=== PATIENT | male | born 1960 | race Caucasian/White ===

== ENCOUNTER 2020-03-03 07:13 | Outpatient (REF) | payer BC, SELFPAY ==
[2020-03-03 07:43] LABS: Hematocrit 49.5 % (42-52); Hemoglobin 16.5 g/dl (14.0-18.0); Mean Corpuscular HGB Conc 33.3 g/dl (31.0-36.0); Mean Corpuscular Hemoglobin 29.3 pg (27.0-33.0); Mean Corpuscular Volume 87.9 fL (80-98); Mean Platelet Volume 10.6 fL (9.4-12.4); Platelet Count 235 X10*3/uL (160-400); Red Blood Count 5.63 X10*6/uL (4.60-5.80); Red Cell Distribution Width 12.8 % (11.0-16.0); White Blood Count 6.4 X10*3/uL (4.8-10.8)
[2020-03-03 08:03] LABS: Alanine Aminotransferase 28 U/L (0-40); Albumin Level 4.3 g/dL (3.5-5.0); Alkaline Phosphatase 46 U/L (39-117); Anion Gap 13 (12-20); Aspartate Amino Transferase 26 U/L (5-37); Bilirubin Direct 0.4 mg/dL (0.0-0.5); Bilirubin Total 1.1 mg/dL (0.0-1.0); Blood Urea Nitrogen 16 mg/dL (9-16); Calcium 8.6 mg/dL (8.4-10.2); Carbon Dioxide 28 mmol/L (22-29); Chloride 102 mmol/L (96-108); Cholesterol 203 mg/dL; Estimated Glomerular Filt Rate > 60; Glucose Random 99 mg/dL (60-115); HDL Cholesterol 33 mg/dL; LDL Cholesterol Calculated 152 mg/dl; Potassium 3.9 mmol/l (3.3-5.1); Sodium 139 mmol/L (135-145); Total Protein 6.8 g/dL (6.5-8.0); Triglycerides 91 mg/dL
== END 2020-03-03 07:14 | disposition home or self-care (01) ==
LOC: HO.LAB 07:13
PROVIDERS: PCP Internal Medicine; Visit Provider Internal Medicine
DX: I10 Essential (primary) hypertension (principal)
CPT/HCPCS: 36415; 80048; 80061; 80076; 85027

== ENCOUNTER 2021-08-19 09:32 | Outpatient (REF) | payer BC, SELFPAY ==
[2021-08-19 11:02] LABS: Alanine Aminotransferase 20 U/L (0-40); Albumin Level 4.2 g/dL (3.5-5.0); Alkaline Phosphatase 43 U/L (39-117); Anion Gap 11 (12-20); Aspartate Amino Transferase 18 U/L (5-37); Bilirubin Direct 0.4 mg/dL (0.0-0.5); Bilirubin Total 1.1 mg/dL (0.0-1.0); Blood Urea Nitrogen 12 mg/dL (9-16); Calcium 8.9 mg/dL (8.4-10.2); Carbon Dioxide 30 mmol/L (22-29); Chloride 104 mmol/L (96-108); Cholesterol 198 mg/dL; Estimated Glomerular Filt Rate > 60; Glucose Random 102 mg/dL (60-115); HDL Cholesterol 42 mg/dL; LDL Cholesterol Calculated 144 mg/dl; Sodium 141 mmol/L (135-145); Total Protein 6.6 g/dL (6.5-8.0); Triglycerides 63 mg/dL
[2021-08-19 11:22] LABS: Thyroid Stimulating Hormone 0.58 uIU/mL (0.32-4.0)
[2021-08-19 11:24] LABS: Appearance Urine CLEAR; Color Urine YELLOW; Glucose Urine UA NEG (NEG); Leukocyte Esterase Urine NEG (NEG); Nitrite Urine NEG (NEG); Specific Gravity - Urine 1.015 (1.005-1.025); Urine Blood NEG (NEG); Urine Ketones NEG (NEG); Urine Protein NEG (NEG-TRACE)
== END 2021-08-19 09:33 | disposition home or self-care (01) ==
LOC: HO.LAB 09:32
PROVIDERS: PCP Internal Medicine; Visit Provider Internal Medicine
DX: I10 Essential (primary) hypertension (principal)
CPT/HCPCS: 36415; 80048; 80061; 80076; 81003; 84443

== ENCOUNTER 2021-10-12 08:29 | Outpatient (REF) | payer BC, SELFPAY ==
[2021-10-12 08:55] LABS: Binax Internal Control QC Valid; Binax Now Covid-19 Ag Negative (Negative); Binax Performed by: HO.BONILM
== END 2021-10-12 08:30 | disposition home or self-care (01) ==
LOC: HO.HMGCLDS 08:29
PROVIDERS: PCP Internal Medicine; Visit Provider Internal Medicine
DX: Z20.822 Contact with and (suspected) exposure to COVID-19 (principal); J06.9 Acute upper respiratory infection, unspecified
CPT/HCPCS: 87811; C9803

== ENCOUNTER 2021-10-14 11:24 | Outpatient (REF) | payer BC, SELFPAY ==
[2021-10-14 12:08] LABS: Influenza A PCR NEGATIVE (Negative); Influenza B PCR NEGATIVE (Negative); Resp Syncy Virus RNA Qual PCR NEGATIVE (Negative); SARS COV2 PCR INHOUSE NEGATIVE (Negative)
== END 2021-10-14 11:25 | disposition home or self-care (01) ==
LOC: HO.LNP 11:24
PROVIDERS: Visit Provider Internal Medicine
DX: Z20.822 Contact with and (suspected) exposure to COVID-19 (principal); R09.89 Other specified symptoms and signs involving the circulatory and respiratory systems
CPT/HCPCS: 0241U

== ENCOUNTER 2021-11-04 14:29 | Outpatient (REF) | payer BC, SELFPAY ==
--- NOTE | ~2021-11-04 | XR_ITS ---
EXAMINATION: XR CHEST CLINICAL INFORMATION: Cough COMPARISON: Chest x-ray August 28, 2008 TECHNIQUE: 2 views of the chest were obtained. FINDINGS: Cardiac silhouette is normal in size. The lungs are well aerated. There is no lobar consolidation. No pleural effusion or pneumothorax. Moderate degenerative changes of the spine. XR/XR chest 2V IMPRESSION: No acute pulmonary pathology.
== END 2021-11-04 14:30 | disposition home or self-care (01) ==
LOC: HO.HMGCX 14:29
PROVIDERS: PCP Internal Medicine
DX: R05.9 Cough, unspecified (principal)
CPT/HCPCS: 71046

== ENCOUNTER 2022-06-09 14:44 | Outpatient (REF) | payer BC, SELFPAY ==
[2022-06-09 15:39] LABS: Hematocrit 45.9 % (42.0-52.0); Hemoglobin 15.5 g/dl (14.0-18.0); Mean Corpuscular HGB Conc 33.8 g/dl (31.0-36.0); Mean Corpuscular Hemoglobin 28.9 pg (27.0-33.0); Mean Corpuscular Volume 85.6 fL (80.0-98.0); Mean Platelet Volume 10.3 fL (9.4-12.4); Platelet Count 218 X10*3/uL (160-400); Red Blood Count 5.36 X10*6/uL (4.60-5.80); Red Cell Distribution Width 12.8 % (11.0-16.0); White Blood Count 6.7 X10*3/uL (4.8-10.8)
[2022-06-09 15:49] LABS: Appearance Urine Clear; Color Urine Yellow; Glucose Urine UA Negative (Negative); Leukocyte Esterase Urine Negative (Negative); Nitrite Urine Negative (Negative); PH 5.5 (5.0-9.0); Specific Gravity - Urine 1.015 (1.005-1.025); Urine Blood Negative (Negative); Urine Ketones Negative (Negative); Urine Protein Negative (Neg-Trace)
[2022-06-09 16:41] LABS: Alanine Aminotransferase 24 U/L (0-40); Alkaline Phosphatase 47 U/L (39-117); Anion Gap 13 (12-20); Aspartate Amino Transferase 16 U/L (5-37); Bilirubin Direct 0.2 mg/dL (0.0-0.5); Bilirubin Total 0.7 mg/dL (0.0-1.0); Blood Urea Nitrogen 11 mg/dL (9-16); Carbon Dioxide 29 mmol/L (22-29); Chloride 105 mmol/L (96-108); Cholesterol 185 mg/dL; Estimated Glomerular Filt Rate > 60; Glucose Random 126 mg/dL (60-115); HDL Cholesterol 40 mg/dL; LDL Cholesterol Calculated 124 mg/dl; Potassium 3.8 mmol/L (3.3-5.1); Sodium 143 mmol/L (135-145); Total Protein 6.2 g/dL (6.5-8.0); Triglycerides 107 mg/dL
[2022-06-09 16:57] LABS: Thyroid Stimulating Hormone 0.83 uIU/mL (0.32-4.0)
[2022-06-10 09:44] LABS: Estimated Average Glucose 117 mg/dL; Hemoglobin A1c % 5.7 %
== END 2022-06-09 14:45 | disposition home or self-care (01) ==
LOC: HO.LAB 14:44
PROVIDERS: PCP Internal Medicine; Visit Provider Internal Medicine
DX: I10 Essential (primary) hypertension (principal); R73.9 Hyperglycemia, unspecified
CPT/HCPCS: 36415; 80048; 80061; 80076; 81003; 83036; 84443; 85027

== ENCOUNTER 2023-05-29 14:09 | Outpatient (AMB) | payer BC, SELFPAY ==
--- NOTE | 2023-05-29 14:10 | MHC.PC.OV ---
Vital Signs 05/29/23 14:12 Height 5 ft 9 in Weight 282 lb BMI 41.6 BP 132/70 Blood Pressure Location Lt brachial Position Sitting Pulse 87 Pulse Source Pulse Oximeter Pulse Oximetry (%) 97 Oxygen Delivery Method Room Air Intake Visit Reasons: 4 month f/u Labs Intake Note: Patient is here to follow up on HTN,. Jinrikisha Driver Required: No Case Manager: Not Required per policy Accompanied by: Self / Same As Patient Allergies No Known Allergies Allergy (Mild, Verified 05/29/23 14:12) NONE Tobacco use date assessed: 05/29/23 Fall risk assessment: No Falls in past year Last assessed Fall Risk: 05/29/23 Dental Screening Dental Screen Date: 05/29/23 Did you have a dental visit in the last 12 months?: Yes Did you have a dental problem in the last 6 months where you did not have access to dental care?: No Was dental information given to patient?: Patient has dentist HPI 4 month f/u Labs HPI Details 63-year-old male presents to the office to discuss his chronic medical conditions. Patient continues to have extensive pain all over his body and neck. He has been diagnosed with osteoarthritis. Unfortunately no procedure could be done at the pain clinic. His symptoms have to be controlled with Celebrex. He is requesting a refill on the same. Compliant with his blood pressure medications. Does not check blood pressures at home. No nausea or vomiting. Continues to work at [employer]. Not following any particular diet or exercise plan. [facility] Medical History (Updated 06/09/22 @ 14:48 by Claude Orozco MD) Morbid obesity with BMI of 40.0-44.9, adult Cervicalgia of egxkibmm-mhhvpai-cedct region Tinnitus Benign essential HTN Surgical History (Updated 05/29/23 @ 14:16 by TRELL Chilel) History of hand surgery History of left knee replacement Family History Family/Other Medical history unknown Social History Housing: House Alcohol intake: never Patient Tobacco Use Status: Never used Tobacco e-Cigarette/Vaping Use: Never Used Second Hand Smoke Exposure: No service: No Current occupational status: employed Current occupational exposures/hazards: No Cognitive needs: No Hearing needs: No Vision needs: Yes (reading glasses) Questionnaire PHQ-9 Over the last 2 weeks, how often have you been bothered by any of the following problems? 1. Little interest or pleasure in doing things: not at all 2. Feeling down, depressed, or hopeless: not at all 3. Trouble falling or staying asleep, or sleeping too much: not at all 4. Feeling tired or having little energy: not at all 5. Poor appetite or overeating: not at all 6. Feeling bad about yourself - or that you are a failure or have let yourself or your family down: not at all 7. Trouble concentrating on things, such as reading the newspaper or watching television: not at all 8. Moving or speaking so slowly that other people could have noticed. Or the opposite - being so fidgety or restless that you have been moving around a lot more than usual: not at all 9. Thoughts that you would be better off or of hurting yourself in some way: not at all Total score: 0 Depression Screening Interpretation: Negative Depression Screening Done: Yes Source: Developed by Drs. Eric Prince, Nanette Greenberg, Cisco Burden and colleagues, with an educational marline from [employer]. Thrive Questionnaire Date Thrive assessed: 05/29/23 I am a: Patient What is your living situation today?: I have a steady place to live Within the past 12 months, did the food you bought not last and you didn't have the money to get more?: Never true Within the past 12 months, did you worry whether your food would run out before you got money to buy more?: Never true Do you have trouble paying for medicines?: No Do you have trouble getting transportation to medical appointments?: No Do you have trouble paying your heating and electricity bill?: No Do you have trouble taking care of your child, family member or friend?: No Do you have trouble with day-to-day activities such as bathing, preparing meals, shopping, managing finances, etc.?: No Are you currently unemployed and looking for a job?: No Are you interested in more education?: No Currently or been in a relationship where the following occur: no concerns reported THRIVE Score: 0 AUDIT C Alcohol Use Questionnaire (AUDIT-C) 1. How often do you have a drink containing alcohol?: Never Total Score: 0 MAXWELL-7 AMB Questionnaire MAXWELL-7 Date MAXWELL - 7 assessed: 05/29/23 Feeling nervous, anxious, or on edge: 0 = Not at all Not being able to stop or control worryin = Not at all Worrying too much about different things: 0 = Not at all Trouble relaxin = Not at all Being so restless that it is hard to sit still: 0 = Not at all Becoming easily annoyed or irritable: 0 = Not at all Feeling afraid as if something awful might happen: 0 = Not at all Total MAXWELL-7 score (0-4 normal; 5-9 mild; 10-14 moderate; 15-21 severe): 0 Source: Developed by Drs. Eric Prince, Nanette Greenberg, Cisco Burden and colleagues, with an educational marline from [employer]. Physical exam (Primary Care) Vital Signs: Last Vital Signs Pulse 87 05/29/23 14:12 BP 132/70 05/29/23 14:12 Pulse Ox 97 05/29/23 14:12 Oxygen Delivery Method Room Air 05/29/23 14:12 BMI result Body Mass Index 41.6 Tobacco/Smoking Status: Tobacco use Status Tobacco use date assessed 05/29/23 05/29/23 14:17 Patient Tobacco Use Status Never used Tobacco 05/29/23 14:11 e-Cigarette/Vaping Use Never Used 05/29/23 14:11 PHQ-9: PHQ-9 Score PHQ-9: Total score 0 05/29/23 14:11 Depression Screening Interpretation: Negative Thrive Assessment: Date of Thrive Assessment Date Thrive assessed 05/29/23 05/29/23 14:11 Currently or been in a relationship where the following occur: no concerns reported Const General: cooperative and healthy appearing Nutritional Appearance: well nourished Orientation/consciousness: patient oriented x3 Limitations: no limitations HENMT Head: Yes normal to inspection Eyes General: appearance normal, both eyes and all related structures Neck Neck: Yes normal visual inspection Chest Chest palpation & inspection: normal palpation of entire chest wall Resp Effort & Inspection: normal respiratory effort Neuro General: patient oriented x3 Assessment and Plan Assessment & Plan (1) Morbid obesity with BMI of 40.0-44.9, adult: Code(s): E66.01 - Morbid (severe) obesity due to excess calories; Z68.41 - Body mass index [BMI] 40.0-44.9, adult (2) Benign essential HTN: Code(s): I10 - Essential (primary) hypertension Plan: Blood pressure is in range. Continue current medications. Orders: Orders Lipid Panel Today E66.01 - Morbid (severe) obesity due to excess calories, I10 - Essential (primary) hypertension, Z68.41 - Body mass index [BMI] 40.0-44.9, adult Liver Panel Today E66.01 - Morbid (severe) obesity due to excess calories, I10 - Essential (primary) hypertension, Z68.41 - Body mass index [BMI] 40.0-44.9, adult UA and rflx microscopic Today E66.01 - Morbid (severe) obesity due to excess calories, I10 - Essential (primary) hypertension, Z68.41 - Body mass index [BMI] 40.0-44.9, adult Basic Metabolic Panel Today E66.01 - Morbid (severe) obesity due to excess calories, I10 - Essential (primary) hypertension, Z68.41 - Body mass index [BMI] 40.0-44.9, adult Complete Blood Count no Diff Today E66.01 - Morbid (severe) obesity due to excess calories, I10 - Essential (primary) hypertension, Z68.41 - Body mass index [BMI] 40.0-44.9, adult Thyroid Stimulating Hormone Today E66.01 - Morbid (severe) obesity due to excess calories, I10 - Essential (primary) hypertension, Z68.41 - Body mass index [BMI] 40.0-44.9, adult Medications: New celecoxib 200 mg PO DAILY 90 caps 1RF Coding Level of Care Code Est Pt Level 4 (03142) Diagnoses Morbid obesity with BMI of 40.0-44.9, adult E66.01; Z68.41 Benign essential HTN I10
[2023-05-29 14:12] VITALS: BP 132/70; PULSE 87; O2SAT 97; BMI 41.6
== END 2023-05-29 14:44 | disposition home or self-care (01) ==
PROVIDERS: PCP Internal Medicine; Visit Provider Internal Medicine
DX: E66.01 Morbid (severe) obesity due to excess calories (principal); Z68.41 Body mass index [BMI] 40.0-44.9, adult; I10 Essential (primary) hypertension
CPT/HCPCS: 99214

== ENCOUNTER 2023-06-09 11:20 | Outpatient (REF) | payer BC, SELFPAY ==
[2023-06-09 12:21] LABS: Appearance Urine Clear; Color Urine Yellow; Glucose Urine UA Negative (Negative); Leukocyte Esterase Urine Negative (Negative); Nitrite Urine Negative (Negative); Specific Gravity - Urine 1.015 (1.005-1.025); Urine Blood Negative (Negative); Urine Ketones Negative (Negative); Urine Protein Negative (Neg-Trace)
[2023-06-09 12:28] LABS: Hematocrit 48.4 % (42.0-52.0); Hemoglobin 16.8 g/dl (14.0-18.0); Mean Corpuscular HGB Conc 34.7 g/dl (31.0-36.0); Mean Corpuscular Hemoglobin 30.2 pg (27.0-33.0); Mean Corpuscular Volume 86.9 fL (80.0-98.0); Mean Platelet Volume 10.6 fL (9.4-12.4); Platelet Count 229 X10*3/uL (160-400); Red Blood Count 5.57 X10*6/uL (4.60-5.80); Red Cell Distribution Width 12.7 % (11.0-16.0); White Blood Count 6.4 X10*3/uL (4.8-10.8)
[2023-06-09 13:15] LABS: Alanine Aminotransferase 20 U/L (0-40); Albumin Level 4.2 g/dL (3.5-5.0); Alkaline Phosphatase 41 U/L (39-117); Anion Gap 10 (12-20); Aspartate Amino Transferase 17 U/L (5-37); Bilirubin Direct 0.3 mg/dL (0.0-0.5); Bilirubin Total 0.9 mg/dL (0.0-1.0); Blood Urea Nitrogen 14 mg/dL (9-16); Calcium 9.1 mg/dL (8.4-10.2); Carbon Dioxide 30 mmol/L (22-29); Chloride 104 mmol/L (96-108); Cholesterol 182 mg/dL (<200); Estimated Glomerular Filt Rate > 60; Glucose Random 99 mg/dL (60-115); HDL Cholesterol 37 mg/dL (>40); LDL Cholesterol Calculated 128 mg/dL (<100); Potassium 3.5 mmol/L (3.3-5.1); Sodium 140 mmol/L (135-145); Total Protein 7.3 g/dL (6.5-8.0); Triglycerides 88 mg/dL (<150)
[2023-06-09 13:33] LABS: Thyroid Stimulating Hormone 0.59 uIU/mL (0.32-4.0)
== END 2023-06-09 11:21 | disposition home or self-care (01) ==
LOC: HO.LAB 11:20
PROVIDERS: PCP Internal Medicine; Visit Provider Internal Medicine
DX: E66.01 Morbid (severe) obesity due to excess calories (principal); Z68.41 Body mass index [BMI] 40.0-44.9, adult; I10 Essential (primary) hypertension
CPT/HCPCS: 36415; 80048; 80061; 80076; 81003; 84443; 85027

== ENCOUNTER 2024-03-27 14:26 | Outpatient (AMB) | payer BC, SELFPAY ==
[2024-03-27 14:34] VITALS: BP 136/84; PULSE 76; TEMP 36.2; O2SAT 95; BMI 40.8
--- NOTE | 2024-03-27 14:34 | A.OFFPC_ITS ---
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 Required: No Accompanied by: Self / Same As Patient Allergies No Known Allergies Allergy (Mild, Verified 03/27/24 14:45) NONE Medication List - Last Reconciled 03/27/24 by QUINN Mahan amlodipine 5 mg PO DAILY celecoxib 200 mg PO DAILY diazepam 5 mg PO DAILY hydrochlorothiazide 25 mg PO QAM lisinopril 20 mg PO DAILY simvastatin 10 mg PO BEDTIME Tobacco use date assessed: 03/27/24 Fall risk assessment: No Falls in past year Last assessed Fall Risk: 03/27/24 Dental Screening Dental Screen Date: 03/27/24 Did you have a dental visit in the last 12 months?: Yes Did you have a dental problem in the last 6 months where you did not have access to dental care?: No Was dental information given to patient?: Patient has dentist HPI Pre op HPI Details The patient is a 63-year-old male who presents today for preop clearance. Patient of Dr. Orozco Surgery: Left reverse total shoulder arthroplasty. Surgery date: 05/02/24 Surgeon/Location: Dr. Shayy Florez at [facility] [place] Anesthesisa: General. Patient reports history of general anesthesia in the past that he tolerated well. The patient denies history of perioperative hypothermia blood clotting disorders. He is not on any anticoagulation. Medical history significant for morbid obesity, benign essential hypertension, cervicalgia of occipito-axial region, tinnitus The patient denies SOB, chest pain, heart palpitation, dizziness, or heart palpitation [facility] Medical History (Updated 03/27/24 @ 15:25 by QUINN Mahan) Morbid obesity with BMI of 40.0-44.9, adult Cervicalgia of vowhrksl-czdvxtb-ajywm region Tinnitus Benign essential HTN Surgical History History of hand surgery History of left knee replacement Family History Family/Other Medical history unknown Social History Housing: House Alcohol intake: never Patient Tobacco Use Status: Never used Tobacco e-Cigarette/Vaping Use: Never Used Second Hand Smoke Exposure: No service: No Current occupational status: employed Current occupational exposures/hazards: No Cognitive needs: No Hearing needs: No Vision needs: Yes (reading glasses) Questionnaire PHQ-9 Over the last 2 weeks, how often have you been bothered by any of the following problems? 1. Little interest or pleasure in doing things: not at all 2. Feeling down, depressed, or hopeless: not at all 3. Trouble falling or staying asleep, or sleeping too much: not at all 4. Feeling tired or having little energy: not at all 5. Poor appetite or overeating: not at all 6. Feeling bad about yourself - or that you are a failure or have let yourself or your family down: not at all 7. Trouble concentrating on things, such as reading the newspaper or watching television: not at all 8. Moving or speaking so slowly that other people could have noticed. Or the opposite - being so fidgety or restless that you have been moving around a lot more than usual: not at all 9. Thoughts that you would be better off or of hurting yourself in some way: not at all Total score: 0 Depression Screening Interpretation: Negative Depression Screening Done: Yes 18322 - PHQ-9 Billing: Yes Source: Developed by Drs. Eric Prince, Nanette Greenberg, Cisco Burden and colleagues, with an educational marline from [employer]. Thrive Questionnaire Date Thrive assessed: 03/27/24 I am a: Patient What is your living situation today?: I have a steady place to live Within the past 12 months, did the food you bought not last and you didn't have the money to get more?: Never true Within the past 12 months, did you worry whether your food would run out before you got money to buy more?: Never true Do you have trouble paying for medicines?: No Do you have trouble getting transportation to medical appointments?: No Do you have trouble paying your heating and electricity bill?: No Do you have trouble taking care of your child, family member or friend?: No Do you have trouble with day-to-day activities such as bathing, preparing meals, shopping, managing finances, etc.?: No Are you currently unemployed and looking for a job?: No Are you interested in more education?: No Please select the resources that you would like help with: None Currently or been in a relationship where the following occur: No concerns reported THRIVE Score: 0 AUDIT C Alcohol Use Questionnaire (AUDIT-C) 1. How often do you have a drink containing alcohol?: Never Total Score: 0 Score Reviewed/Action Taken: Yes MAXWELL-7 AMB Questionnaire MAXWELL-7 Date MAXWELL - 7 assessed: 03/27/24 Feeling nervous, anxious, or on edge: 0 = Not at all Not being able to stop or control worryin = Not at all Worrying too much about different things: 0 = Not at all Trouble relaxin = Not at all Being so restless that it is hard to sit still: 0 = Not at all Becoming easily annoyed or irritable: 0 = Not at all Feeling afraid as if something awful might happen: 0 = Not at all Total MAXWELL-7 score (0-4 normal; 5-9 mild; 10-14 moderate; 15-21 severe): 0 Source: Developed by Drs. Eric Prince, Nanette Greenberg, Cisco Burden and colleagues, with an educational marline from [employer]. MAXWELL-7 Assessment Billing MAXWELL-7 Assessment Tool: MAXWELL-7 Assessment 63837 Review of Systems Const Details: Denies chills, Denies fatigue, Denies fever(s), Denies headache(s) and Denies weakness HEENT Denies change in vision, Denies dizziness, Denies headache(s), Denies hearing loss, Denies nasal congestion, Denies sinus pain, Denies sinus pressure and Denies sore throat Card Denies chest pain, Denies lightheadedness, Denies dyspnea and Denies other (palpitations) Resp Denies cough, Denies dyspnea and Denies wheezing GI Denies abdominal pain, Denies melena, Denies hematochezia, Denies change in brant wel habits, Denies dyspepsia and Denies nausea Denies hematuria and Denies dysuria Musc Denies abnormal gait, Denies myalgias, reports left shoulder pain, Denies numbness and Denies tingling Skin/Breast Denies rash, Denies unusual bruising and Denies wounds Neuro Denies abnormal gait, Denies dizziness, Denies headache(s), Denies memory loss, Denies numbness, Denies Sensory deficit (Neuro), Denies tingling and Denies weakness Psych Denies anxiety, Denies depression and Denies memory loss Endo Denies cold intolerance, Denies fatigue, Denies heat intolerance, Denies polydipsia and Denies polyuria Jose G/Lymph Denies easy bleeding and Denies easy bruising Aller/Immun Denies wheezing Physical exam (Primary Care) Vital Signs: Last Vital Signs Temp 97.1 F 03/27/24 14:34 Pulse 76 03/27/24 14:34 BP 136/84 03/27/24 14:34 Pulse Ox 95 03/27/24 14:34 Oxygen Delivery Method Room Air 03/27/24 14:34 BMI result Body Mass Index 40.8 Tobacco/Smoking Status: Tobacco use Status Tobacco use date assessed 03/27/24 03/27/24 14:39 Patient Tobacco Use Status Never used Tobacco 03/27/24 14:39 e-Cigarette/Vaping Use Never Used 03/27/24 14:39 PHQ-9: PHQ-9 Score PHQ-9: Total score 0 03/27/24 18:26 Depression Screening Interpretation: Negative Thrive Assessment: Date of Thrive Assessment Date Thrive assessed 03/27/24 03/27/24 14:39 Currently or been in a relationship where the following occur: No concerns reported Const Other: General: no acute distress, well developed, alert and awake Nutritional Appearance: well nourished Orientation/consciousness: patient oriented x3 HENMT Head: Yes normocephalic and Yes atraumatic Ears: hearing grossly normal bilaterally and TM's normal bilaterally General nose exam: Normal external nose present and Normal nares present Mouth: Normal oral and palatal mucosa present and moist mucous membranes Teeth and gingiva: dentition normal Throat: Yes oropharynx normal Eyes Pupils: Equal, round and reactive pupils present and Pupil accommodation reflex normal EOM: EOMs intact bilaterally Neck Neck: Yes normal visual inspection, Yes no lymphadenopathy and Yes trachea midline Thyroid: Thyroid normal Carotids: no bruits Lymphatic: no lymphadenopathy noted Chest Chest palpation & inspection: normal inspection of the chest Resp Effort & Inspection: normal respiratory effort Auscultation: clear to auscultation bilaterally Cardio Rate: regular rate Rhythm: regular rhythm Heart sounds: S1 normal heart sound present, S2 normal heart sound present, no gallops, no murmurs and no rubs Bruits: no abdominal aortic bruits and no carotid bruits GI Palpation (GI): No Abdominal aortic bruit present, Soft to palpation, nontender, No hepatosplenomegaly present and No Rebound tenderness present Auscultation: normal bowel sounds General: Yes no CVA tenderness Back/Spine/Pelvis Back: no CVA tenderness left shoulder pain wtih ROM Skin General: warm and dry. Normal skin color. Normal skin turgor Lesions: no lesions Nails: normal Neuro General: patient oriented x3 Cranial nerves: Yes Equal, round and reactive pupils present Cognition (Neuro): normal cognition Gait exam (Neuro): Normal gait present Motor exam (neuro): 5/5 motor strength present throughout Extrem General: Yes normal to inspection, No edema and No calf tenderness Psych Appearance: grossly normal Affect: normal affect Attitude: cooperative Thought process: Normal thought process present Coding Level of Care Code Est Pt Level 3 (04828) Diagnoses Preoperative clearance Z01.818 Benign essential HTN I10 Additional Codes MAXWELL-7 Assessment Billing - MAXWELL-7 Assessment Tool: MAXWELL-7 Assessment 69964 ([id number]) PHQ-9 - 58391 - PHQ-9 Billing: Yes ([id number]) Time Spent (min) 25 Assessment & Plan Assessment & Plan (1) Preoperative clearance: Code(s): Z01.818 - Encounter for other preprocedural examination Category: Medical Plan: Regarding preop clearance the patient is at acceptable risk for proposed surgery. Reviewed with the patient that no surgery is completely free of risk and that this examination is to assist the surgeon in reviewing informed consent. Labs and EKG was ordered to assist in completing his evaluation. The patient hypertension is controlled on amlodipine 5 mg daily and lisinopril 20 mg daily-you can take these medications with sips of water at the morning of surgery. Stop taking celecoxib 200mg daily 7 days before surgery-you can resume this medication 7 days after surgery. (2) Benign essential HTN: Code(s): I10 - Essential (primary) hypertension Category: Medical Plan: Reinforced low sodium diet Patient's BP is adequately controlled on his current medications, including Amlodipine 5 mg QD, Lisinopril 20 mg QD and HCTZ 25 mg QD Plan Follow up with PCP in 4 months Orders: Orders Complete Blood Count Auto Diff 03/27/24 Z01.812 - Encounter for preprocedural laboratory examination Comprehensive [place]. Panel Fast 03/27/24 Z01.812 - Encounter for preprocedural laboratory examination ECG 12 lead EKG 03/27/24 Z01.818 - Encounter for other preprocedural examination Hemoglobin A1c 03/27/24 Z01.812 - Encounter for preprocedural laboratory examination
== END 2024-03-27 15:00 | disposition home or self-care (01) ==
PROVIDERS: PCP Internal Medicine
DX: I10 Essential (primary) hypertension (principal); Z01.818 Encounter for other preprocedural examination

== ENCOUNTER → 2024-03-27 14:26 | Outpatient (BNVA) | payer BC, SELFPAY | PROVIDERS: PCP Internal Medicine | DX: Z01.818 Encounter for other preprocedural examination (principal); I10 Essential (primary) hypertension; Z79.899 Other long term (current) drug therapy | CPT/HCPCS: 96127 ==

== ENCOUNTER → 2024-03-29 09:40 | Outpatient (REF) | payer BC, SELFPAY ==
--- NOTE | 2024-03-29 09:45 | ECG_ITS ---
Test Reason : PREOP Blood Pressure : */* mmHG Vent. Rate : 76 BPM Atrial Rate : 76 BPM P-R Int : 176 ms QRS Dur : 102 ms QT Int : 400 ms P-R-T Axes : 46 26 35 degrees QTcB Int : 450 ms Normal sinus rhythm Nonspecific ST abnormality Abnormal ECG When compared with ECG of 05-Feb-2007 13:10, No significant change was found Referred By: Rolando David Electronically Signed By: JENNY DOMINGUEZ MD
[2024-03-29 10:08] LABS: MANUAL DIFF FLAG NO
[2024-03-29 10:42] LABS: Basophils Absolute Auto 0.1 X10*3/uL (0.0-0.2); Basophils Percent Auto 1.3 % (0-2); Eosinophils Absolute Auto 0.1 X10*3/uL (0.0-0.4); Estimated Average Glucose 114 mg/dL; Hematocrit 44.9 % (42.0-52.0); Hemoglobin 15.6 g/dl (14.0-18.0); Hemoglobin A1c % 5.6 % (<6.0); Imm Gran Abs Auto 0.02 X10*3/uL (0.00-0.03); Imm Gran Pct Auto 0.3 % (0.0-0.4); Lymphocytes Absolute Auto 1.3 X10*3/uL (1.2-4.9); Lymphocytes Percent Auto 20.5 % (20-40); Mean Corpuscular HGB Conc 34.7 g/dl (31.0-36.0); Mean Corpuscular Hemoglobin 29.7 pg (27.0-33.0); Mean Corpuscular Volume 85.5 fL (80.0-98.0); Mean Platelet Volume 10.2 fL (9.4-12.4); Monocytes Absolute Auto 0.4 X10*3/uL (0.1-1.2); Neutrophils Absolute Auto 4.2 x10*3/uL (2.0-8.3); Neutrophils Percent Auto 68.9 % (45-73); Platelet Count 229 X10*3/uL (160-400); Red Blood Count 5.25 X10*6/uL (4.60-5.80); Red Cell Distribution Width 12.6 % (11.0-16.0); Total Hemoglobin (HGBA1C) 3986.1494 umol/L; White Blood Count 6.2 X10*3/uL (4.8-10.8)
[2024-03-29 11:16] LABS: Alanine Aminotransferase 33 U/L (0-40); Albumin Level 4.1 g/dL (3.5-5.0); Alkaline Phosphatase 49 U/L (39-117); Anion Gap 10 (12-20); Aspartate Amino Transferase 33 U/L (5-37); Bilirubin Total 0.8 mg/dL (0.0-1.0); Blood Urea Nitrogen 10 mg/dL (9-16); Calcium 8.8 mg/dL (8.4-10.2); Carbon Dioxide 28 mmol/L (22-29); Chloride 107 mmol/L (96-108); Estimated Glomerular Filt Rate > 60; Glucose Fasting 122 mg/dL (60-99); Potassium 3.5 mmol/L (3.3-5.1); Sodium 141 mmol/L (135-145); Total Protein 7.2 g/dL (6.5-8.0)
== END ==
LOC: HO.CARD 09:40
PROVIDERS: PCP Internal Medicine
DX: Z01.818 Encounter for other preprocedural examination (principal); Z01.812 Encounter for preprocedural laboratory examination; Z13.1 Encounter for screening for diabetes mellitus
CPT/HCPCS: 36415; 80053; 83036; 85025; 93005

== ENCOUNTER → 2024-03-29 09:45 | Outpatient (BNV) | payer BC, SELFPAY | PROVIDERS: PCP Internal Medicine; Visit Provider Internal Medicine Cardiovascular Disease | DX: R94.31 Abnormal electrocardiogram [ECG] [EKG] (principal) | CPT/HCPCS: 93010 ==

== ENCOUNTER 2024-07-25 14:14 | Outpatient (AMB) | payer BC, SELFPAY ==
--- NOTE | 2024-07-25 14:23 | MHC.PC.OV ---
Vital Signs 07/25/24 14:24 Height 5 ft 9 in Weight 273 lb 6 oz BMI 40.4 BP 120/76 Blood Pressure Location Rt brachial Position Sitting Pulse 97 Pulse Source Pulse Oximeter Temp 97.3 F Temp Source Temporal Artery Scan Pulse Oximetry (%) 96 Oxygen Delivery Method Room Air Intake Visit Reasons: Hypertension Intake Note: Patient is here to follow up on HTN. 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 Assistant Designer: Not Required per policy Accompanied by: Self / Same As Patient Allergies No Known Allergies Allergy (Mild, Verified 07/25/24 14:23) NONE Tobacco use date assessed: 07/25/24 Fall risk assessment: No Falls in past year Last assessed Fall Risk: 07/25/24 Dental Screening Dental Screen Date: 03/27/24 [facility] Medical History (Updated 03/27/24 @ 15:25 by QUINN Mahan) Morbid obesity with BMI of 40.0-44.9, adult Cervicalgia of edoqkwku-dcblbab-tkoth region Tinnitus Benign essential HTN Surgical History (Updated 07/25/24 @ 14:27 by TRELL Chilel) History of left shoulder replacement History of hand surgery History of left knee replacement Family History Family/Other Medical history unknown Social History Housing: House Alcohol intake: never Patient Tobacco Use Status: Never used Tobacco e-Cigarette/Vaping Use: Never Used Second Hand Smoke Exposure: No service: No Current occupational status: employed Current occupational exposures/hazards: No Cognitive needs: No Hearing needs: No Vision needs: Yes (reading glasses) Questionnaire PHQ-9 Over the last 2 weeks, how often have you been bothered by any of the following problems? 1. Little interest or pleasure in doing things: not at all 2. Feeling down, depressed, or hopeless: not at all 3. Trouble falling or staying asleep, or sleeping too much: not at all 4. Feeling tired or having little energy: not at all 5. Poor appetite or overeating: not at all 6. Feeling bad about yourself - or that you are a failure or have let yourself or your family down: not at all 7. Trouble concentrating on things, such as reading the newspaper or watching television: not at all 8. Moving or speaking so slowly that other people could have noticed. Or the opposite - being so fidgety or restless that you have been moving around a lot more than usual: not at all 9. Thoughts that you would be better off or of hurting yourself in some way: not at all Total score: 0 Depression Screening Interpretation: Negative Depression Screening Done: Yes Source: Developed by Drs. Eric Prince, Nanette Greenberg, Cisco Burden and colleagues, with an educational marline from [employer]. Thrive Questionnaire Date Thrive assessed: 07/25/24 I am a: Patient What is your living situation today?: I have a steady place to live Within the past 12 months, did the food you bought not last and you didn't have the money to get more?: Never true Within the past 12 months, did you worry whether your food would run out before you got money to buy more?: Never true Do you have trouble paying for medicines?: No Do you have trouble getting transportation to medical appointments?: No Do you have trouble paying your heating and electricity bill?: No Do you have trouble taking care of your child, family member or friend?: No Do you have trouble with day-to-day activities such as bathing, preparing meals, shopping, managing finances, etc.?: No Are you currently unemployed and looking for a job?: No Are you interested in more education?: No Please select the resources that you would like help with: None Currently or been in a relationship where the following occur: I choose not to answer THRIVE Score: 0 AUDIT C Alcohol Use Questionnaire (AUDIT-C) 1. How often do you have a drink containing alcohol?: Never Total Score: 0 MAXWELL-7 AMB Questionnaire MAXWELL-7 Date MAXWELL - 7 assessed: 07/25/24 Feeling nervous, anxious, or on edge: 1 = Several days Not being able to stop or control worryin = Several days Worrying too much about different things: 1 = Several days Trouble relaxin = Several days Being so restless that it is hard to sit still: 1 = Several days Becoming easily annoyed or irritable: 1 = Several days Feeling afraid as if something awful might happen: 0 = Not at all Total MAXWELL-7 score (0-4 normal; 5-9 mild; 10-14 moderate; 15-21 severe): 6 Source: Developed by Drs. Eric Prince, Nanette Greenberg, Cisco Burden and colleagues, with an educational marline from [employer]. Physical exam (Primary Care) Vital Signs: Last Vital Signs Temp 97.3 F 07/25/24 14:24 Pulse 97 07/25/24 14:24 BP 120/76 07/25/24 14:24 Pulse Ox 96 07/25/24 14:24 Oxygen Delivery Method Room Air 07/25/24 14:24 BMI result Body Mass Index 40.4 Tobacco/Smoking Status: Tobacco use Status Tobacco use date assessed 07/25/24 07/25/24 14:28 Patient Tobacco Use Status Never used Tobacco 07/25/24 14:28 e-Cigarette/Vaping Use Never Used 07/25/24 14:28 PHQ-9: PHQ-9 Score PHQ-9: Total score 0 07/25/24 14:28 Depression Screening Interpretation: Negative Thrive Assessment: Date of Thrive Assessment Date Thrive assessed 07/25/24 07/25/24 14:28 Currently or been in a relationship where the following occur: I choose not to answer Coding Level of Care Code Est Pt Level 4 (82752) Complex EM visit Add On G2211 Diagnoses Benign essential HTN I10 Aftercare following left shoulder joint replacement surgery Z47.1; Z96.612 Erectile dysfunction N52.9 Assessment & Plan Assessment & Plan (1) Benign essential HTN: Code(s): I10 - Essential (primary) hypertension Category: Medical Plan: BP is in range. (2) Aftercare following left shoulder joint replacement surgery: Code(s): Z47.1 - Aftercare following joint replacement surgery; Z96.612 - Presence of left artificial shoulder joint Plan: Continue PT exercises. (3) Erectile dysfunction: Code(s): N52.9 - Male erectile dysfunction, unspecified Plan: Viagra prescribed. Plan History of Present Illness The patient is a 64-year-old male presenting with issues related to his postoperative state after shoulder replacement surgery and erectile dysfunction. He has been recuperating from the surgery and is currently participating in physical therapy, though he notes his shoulder is not yet fully functional. He recently resumed driving after being permitted to remove the sling. In terms of sexual health, the patient reports having experienced erectile dysfunction for about a year. This condition prevents him from engaging in intercourse, leading to a discussion about potential treatment options. He has not previously sought treatment for this condition. Social History - Lives at home with his - Recently resumed driving Review of Systems - Musculoskeletal: Reports postoperative status following shoulder replacement surgery - Genitourinary: Reports erectile dysfunction Physical Exam General: Cooperative and healthy appearing Nutritional Appearance: Well nourished Orientation/consciousness: Patient oriented x3 Limitations: No limitations Head: Normal to inspection General: Appearance normal, both eyes and all related structures Neck: Normal visual inspection Chest: Normal palpation of entire chest wall Respiratory: N ormal respiratory effort Neurology: Patient oriented x3, reports erectile dysfunction for about a year, no heart disease. Results Plan 1. Postoperative State After Shoulder Replacement Surgery - Continue physical therapy. - Follow current medication regimen. - No immediate refills needed. 2. Erectile Dysfunction - Prescribe Sildenafil, instruct on use. - Send prescription to [facility]. - Follow up in three months. Discussion Notes During the visit, I discussed with the patient his postoperative status following shoulder replacement surgery. He is engaged in physical therapy and managing his recovery without needing any medication refills at this time. We also addressed his erectile dysfunction, which has persisted for about a year. I explained the use of Sildenafil, which he should take one hour prior to sexual activity, and agreed to send the prescription to [facility]. We scheduled a follow-up in three months to assess his progress. Patient Instructions - Continue attending physical therapy sessions. - Follow the current medication plan. - Take Sildenafil one hour before sexual activity. 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 - Return for a follow-up appointment in three months. Medications: New sildenafil administer 30 minutes to 4 hours before activity 100 mg PO DAILY PRN 7 tabs 0RF sexual activity
[2024-07-25 14:24] VITALS: BP 120/76; PULSE 97; TEMP 36.3; O2SAT 96; BMI 40.4
--- OUTSIDE RECORDS SUMMARY | 2024-07-25 14:55 | XMS_ITS | Clinical Summary ---
Author Organization [facility] Address [address] [place] [address] Care Team Providers Care Community Resource Officer Name Role Phone Unavailable Primary Care Provider Unavailabl e Social History Tobacco Use Types Packs/Day Years Used Date Smoking Tobacco: Never Assessed Sex and Gender Information Value Date Recorded Sex Assigned at Not on file Legal Sex Male 6:32 PM EST Gender Identity Not on file Sexual Orientation Not on file Plan of Treatment Health Maintenance Due Date Last Done Comments Hepatitis C Virus Screening 1960 DTaP/Tdap/Td Vaccines (1 - Tdap) 1977 Pneumococcal Vaccines 50+ (1 of 1 - PCV) 2008 Zoster (Shingles) Vaccine (1 of 2) 2008 COVID-19 Vaccine ( - 2023-2 5 season) 2023 RSV Vaccine 60 years and old er and Patients (1 - 1-dose 75+ series) 2033 Hepatitis B Vaccines Aged Out No long er eligible based on patient's age to complete this topic
== END 2024-07-25 14:58 | disposition home or self-care (01) ==
LOC: HO.HMCH 14:14
PROVIDERS: PCP Internal Medicine; Visit Provider Internal Medicine
DX: I10 Essential (primary) hypertension (principal); Z47.1 Aftercare following joint replacement surgery; Z96.612 Presence of left artificial shoulder joint; N52.9 Male erectile dysfunction, unspecified

== ENCOUNTER → 2024-07-25 14:14 | Outpatient (BNVA) | payer BC, SELFPAY | PROVIDERS: PCP Internal Medicine; Visit Provider Internal Medicine | DX: Z13.89 Encounter for screening for other disorder (principal) ==

== ENCOUNTER 2024-10-31 13:25 | Outpatient (AMB) | payer BC, SELFPAY ==
--- NOTE | 2024-10-31 13:27 | A.OFFPC_ITS ---
Vital Signs 10/31/24 13:28 Height 5 ft 9 in Weight 285 lb BMI 42.1 BP 174/96 H Blood Pressure Location Lt brachial Position Sitting Pulse 90 Pulse Source Pulse Oximeter Temp 97.3 F Temp Source Temporal Artery Scan Pulse Oximetry (%) 95 Oxygen Delivery Method Room Air Intake Visit Reasons: 3 month f/u Allergies No Known Allergies Allergy (Mild, Verified 10/31/24 13:30) NONE Tobacco use date assessed: 10/31/24 Fall risk assessment: No Falls in past year Last assessed Fall Risk: 10/31/24 Dental Screening Dental Screen Date: 10/31/24 Did you have a dental visit in the last 12 months?: Yes Did you have a dental problem in the last 6 months where you did not have access to dental care?: No Was dental information given to patient?: Patient has dentist [facility] Medical History Morbid obesity with BMI of 40.0-44.9, adult Cervicalgia of bzdkzpgh-iyaheea-ydbfg region Tinnitus Benign essential HTN Surgical History History of left shoulder replacement History of hand surgery History of left knee replacement Family History Family/Other Medical history unknown Social History Housing: House Alcohol intake: never Patient Tobacco Use Status: Never used Tobacco e-Cigarette/Vaping Use: Never Used Second Hand Smoke Exposure: No service: No Current occupational status: employed Current occupational exposures/hazards: No Cognitive needs: No Hearing needs: No Vision needs: Yes (reading glasses) Questionnaire PHQ-9 Over the last 2 weeks, how often have you been bothered by any of the following problems? 1. Little interest or pleasure in doing things: not at all 2. Feeling down, depressed, or hopeless: not at all 3. Trouble falling or staying asleep, or sleeping too much: not at all 4. Feeling tired or having little energy: not at all 5. Poor appetite or overeating: not at all 6. Feeling bad about yourself - or that you are a failure or have let yourself or your family down: not at all 7. Trouble concentrating on things, such as reading the newspaper or watching television: not at all 8. Moving or speaking so slowly that other people could have noticed. Or the opposite - being so fidgety or restless that you have been moving around a lot more than usual: not at all 9. Thoughts that you would be better off or of hurting yourself in some way: not at all Total score: 0 Depression Screening Interpretation: Negative Depression Screening Done: Yes Source: Developed by Drs. Eric Prince, Nanette Greenberg, Cisco Burden and colleagues, with an educational marline from [employer]. Thrive Questionnaire Date Thrive assessed: 07/25/24 I am a: Patient What is your living situation today?: I have a steady place to live Within the past 12 months, did the food you bought not last and you didn't have the money to get more?: Never true Within the past 12 months, did you worry whether your food would run out before you got money to buy more?: Never true Do you have trouble paying for medicines?: No Do you have trouble getting transportation to medical appointments?: No Do you have trouble paying your heating and electricity bill?: No Do you have trouble taking care of your child, family member or friend?: No Do you have trouble with day-to-day activities such as bathing, preparing meals, shopping, managing finances, etc.?: No Are you currently unemployed and looking for a job?: No Are you interested in more education?: No Please select the resources that you would like help with: None Currently or been in a relationship where the following occur: I choose not to answer THRIVE Score: 0 AUDIT C Alcohol Use Questionnaire (AUDIT-C) 1. How often do you have a drink containing alcohol?: Never 3. How often do you have six or more drinks on one occasion?: Never Total Score: 0 MAXWELL-7 AMB Questionnaire MAXWELL-7 Date MAXWELL - 7 assessed: 07/25/24 Feeling nervous, anxious, or on edge: 1 = Several days Not being able to stop or control worryin = Several days Worrying too much about different things: 1 = Several days Trouble relaxin = Several days Being so restless that it is hard to sit still: 1 = Several days Becoming easily annoyed or irritable: 1 = Several days Feeling afraid as if something awful might happen: 0 = Not at all Total MAXWELL-7 score (0-4 normal; 5-9 mild; 10-14 moderate; 15-21 severe): 6 Source: Developed by Drs. Eric Prince, Nanette Greenberg, Cisco Burden and colleagues, with an educational marline from [employer]. Physical exam (Primary Care) Vital Signs: Last Vital Signs Temp 97.3 F 10/31/24 13:28 Pulse 90 10/31/24 13:28 BP 174/96 H 10/31/24 13:28 Pulse Ox 95 10/31/24 13:28 Oxygen Delivery Method Room Air 10/31/24 13:28 BMI result Body Mass Index 42.1 Tobacco/Smoking Status: Tobacco use Status Tobacco use date assessed 10/31/24 10/31/24 13:32 Patient Tobacco Use Status Never used Tobacco 10/31/24 13:32 e-Cigarette/Vaping Use Never Used 10/31/24 13:32 PHQ-9: PHQ-9 Score PHQ-9: Total score 0 10/31/24 13:32 Depression Screening Interpretation: Negative Thrive Assessment: Date of Thrive Assessment Date Thrive assessed 07/25/24 10/31/24 13:32 Currently or been in a relationship where the following occur: I choose not to answer Coding Level of Care Code Est Pt Level 4 (00328) Complex EM visit Add On G2211 Diagnoses Solar keratosis L57.0 Benign essential HTN I10 Morbid obesity with BMI of 40.0-44.9, adult E66.01; Z68.41 Assessment & Plan Assessment & Plan (1) Solar keratosis: Code(s): L57.0 - Actinic keratosis Plan: Dermatology referral made (2) Benign essential HTN: Code(s): I10 - Essential (primary) hypertension Category: Medical Plan: Blood pressure is elevated. Patient has not been taking his amlodipine prescription. It was restarted only 3 days ago. He was advised to check his blood pressures at home and send in the readings. Based on the readings, I will adjust his medication accordingly. (3) Morbid obesity with BMI of 40.0-44.9, adult: Code(s): E66.01 - Morbid (severe) obesity due to excess calories; Z68.41 - Body mass index [BMI] 40.0-44.9, adult Category: Medical Plan: Counseling on the importance of diet and exercise done. Plan History of Present Illness - The patient is a 64-year-old male presenting with elevated blood pressure and concerns about sun damage on the scalp. - Hypertension: The patient reports elevated blood pressure, which he attributes to missing doses of amlodipine while away from home. - He has resumed taking all prescribed medications, including lisinopril and amlodipine. - The patient has been advised to monitor his blood pressure at home and report the readings. - Tinnitus: The patient describes his tinnitus as stable but persistent, expressing frustration with its constant presence. - Sun damage on scalp: The patient is concerned about sun damage on his scalp and has requested a referral to a extension course coordinator. Social History - Exercise: The patient reports decreased physical activity due to shoulder issues, leading to weight gain. Review of Systems - Cardiovascular: Reports elevated blood pressure. - Dermatological: Reports sun damage on scalp. - Neurological: Reports persistent tinnitus. Physical Exam General: Cooperative and healthy appearing Nutritional Appearance: Well nourished Orientation/consciousness: Patient oriented x3 Limitations: No limitations Head: Normal to inspection General: Appearance normal, both eyes and all related structures Neck: Normal visual inspection Chest: Normal palpation of entire chest wall Respiratory: Normal respiratory effort Neurology: Patient oriented x3 Results Plan 1. Hypertension - Continue current antihypertensive medications, including amlodipine and lisinopril. - Patient to monitor blood pressure at home and report readings for medication adjustment if necessary. 2. Tinnitus - No specific treatment changes discussed; patient reports stable condition. 3. Sun Damage On Scalp - Referral to a extension course coordinator for further evaluation and management. Discussion Notes During the visit, we discussed the importance of medication adherence for hypertension management and the need for home blood pressure monitoring to assess the effectiveness of the current regimen. I also addressed the patient's concerns about sun damage on the scalp and agreed to refer him to a extension course coordinator for further evaluation. We reviewed the stable nature of his tinnitus and decided to maintain the current management approach. Patient Instructions - Continue taking all prescribed medications, including amlodipine and lisinopril. - Purchase a home blood pressure monitor and record readings regularly. - Report blood pressure readings through the patient portal or by phone. - Follow up with the extension course coordinator as referred for scalp evaluation. Orders: Referrals Dermatology Referral L57.0 - Actinic keratosis
[2024-10-31 13:28] VITALS: BP 174/96; PULSE 90; TEMP 36.3; O2SAT 95; BMI 42.1
--- OUTSIDE RECORDS SUMMARY | 2024-10-31 13:36 | XMS_ITS | Clinical Summary ---
Author Organization [facility] Address [address] [place] [address] Care Team Providers Care Repair Table Operator Name Role Phone Unavailable Primary Care Provider [...]
== END 2024-10-31 13:41 | disposition home or self-care (01) ==
LOC: HO.HMCH 13:25
PROVIDERS: PCP Internal Medicine; Visit Provider Internal Medicine
DX: L57.0 Actinic keratosis (principal); I10 Essential (primary) hypertension; E66.01 Morbid (severe) obesity due to excess calories; Z68.41 Body mass index [BMI] 40.0-44.9, adult

== ENCOUNTER 2025-02-12 14:19 | Outpatient (AMB) | payer BC, SELFPAY ==
[2025-02-12 14:45] VITALS: BP 142/90; PULSE 80; TEMP 36.3; O2SAT 97; BMI 40.9
--- NOTE | 2025-02-12 14:45 | A.OFFPC_ITS ---
Vital Signs 02/12/25 14:45 Height 5 ft 9 in Weight 277 lb 4 oz BMI 40.9 BP 142/90 H Blood Pressure Location Lt brachial Position Sitting Pulse 80 Pulse Source Pulse Oximeter Temp 97.3 F Temp Source Temporal Artery Scan Pulse Oximetry (%) 97 Oxygen Delivery Method Room Air Intake Visit Reasons: Follow Up Intake Note: Patient is here to follow up on HTN. 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 Accompanied by: Self / Same As Patient Allergies No Known Allergies Allergy (Mild, Verified 02/12/25 15:06) NONE Medication List - Last Reconciled 02/12/25 by Claude Orozco MD amlodipine 5 mg PO DAILY celecoxib 200 mg PO DAILY diazepam 5 mg PO BEDTIME 30 days hydrochlorothiazide 25 mg PO QAM lisinopril 20 mg PO DAILY sildenafil 100 mg PO DAILY PRN simvastatin 10 mg PO BEDTIME Tobacco use date assessed: 02/12/25 Fall risk assessment: No Falls in past year Last assessed Fall Risk: 02/12/25 Dental Screening Dental Screen Date: 10/31/24 HPI HPI Comments History of Present Illness Details History of Present Illness - The patient is a 64 year old individua l presenting with concerns about blood pressure readings. - The patient has been tracking blood pr essure at home and noted some high numbers, including a reading of 147, which was attributed to work-related stress. - The patient is reportedly adherent to medication for hypertension, including amlodipine 5 mg, hydrochlorothiazide 25 mg, and lisinopril 20 mg daily. - The patient also takes simvastatin at night for cholesterol management. - The patient has a history of severe ti nnitus, described as horrible ringing, which has been present for 10 years and was previously evaluated by a specialist without resolution. - The patient recently tore a ligament i n the right ankle, which causes pain upon walking. - An MRI of the ankle was performed last week, and the patient has an upcoming surgical consultation on the . - Due to the ankle injury, the patient h as stopped a daily 30-minute walking routine. - For health maintenance, the patient castorena s completed a Cologuard test for colon cancer screening. Social History - Employment: The patient has been worki ng in the [employer] for 45 years. - Work-Related Stress: The patient repor ts a lot of stress at work and is considering retiring next year. - Exercise: The patient was walking for 30 minutes daily but had to stop due to a painful torn ankle ligament. Results - Prior labs: All blood work was reporte no fine. - Recent Imaging: MRI of the right ankle was completed last week. - Colorectal Cancer Screening: Patient c ompleted a Cologuard test. [facility] Medical History Morbid obesity with BMI of 40.0-44.9, adult Cervicalgia of ziozdegf-oivlspc-vrzfj region Tinnitus Benign essential HTN Surgical History History of left shoulder replacement History of hand surgery History of left knee replacement Family History Family/Other Medical history unknown Social History Housing: House Alcohol intake: never Patient Tobacco Use Status: Never used Tobacco e-Cigarette/Vaping Use: Never Used Second Hand Smoke Exposure: No service: No Current occupational status: employed Current occupational exposures/hazards: No Cognitive needs: No Hearing needs: No Vision needs: Yes (reading glasses) Questionnaire Thrive Questionnaire Date Thrive assessed: 07/25/24 I am a: Patient What is your living situation today?: I have a steady place to live Within the past 12 months, did the food you bought not last and you didn't have the money to get more?: Never true Within the past 12 months, did you worry whether your food would run out before you got money to buy more?: Never true Do you have trouble paying for medicines?: No Do you have trouble getting transportation to medical appointments?: No Do you have trouble paying your heating and electricity bill?: No Do you have trouble taking care of your child, family member or friend?: No Do you have trouble with day-to-day activities such as bathing, preparing meals, shopping, managing finances, etc.?: No Are you currently unemployed and looking for a job?: No Are you interested in more education?: No Please select the resources that you would like help with: None Currently or been in a relationship where the following occur: I choose not to answer THRIVE Score: 0 MAXWELL-7 AMB Questionnaire MAXWELL-7 Date MAXWELL - 7 assessed: 07/25/24 Source: Developed by Drs. Eric Prince, Nanette Greenberg, Cisco Burden and colleagues, with an educational marline from [employer]. Review of Systems Narrative Review of Systems - Neurological: Denies headache and blurred vision. - HEENT: Reports significant tinnitus described as horrible ringing, which has not changed. Denies other hearing changes. - Gastrointestinal: Denies nausea and vomiting. - Musculoskeletal: Reports pain in the right ankle upon walking. Physical exam (Primary Care) Vital Signs: Last Vital Signs Temp 97.3 F 02/12/25 14:45 Pulse 80 02/12/25 14:45 BP 142/90 H 02/12/25 14:45 Pulse Ox 97 02/12/25 14:45 Oxygen Delivery Method Room Air 02/12/25 14:45 BMI result Body Mass Index 40.9 Tobacco/Smoking Status: Tobacco use Status Tobacco use date assessed 02/12/25 02/12/25 14:50 Patient Tobacco Use Status Never used Tobacco 02/12/25 14:50 e-Cigarette/Vaping Use Never Used 02/12/25 14:50 Thrive Assessment: Date of Thrive Assessment Date Thrive assessed 07/25/24 02/12/25 14:50 Currently or been in a relationship where the following occur: I choose not to answer Narrative Physical Exam General: Appearance normal, both eyes and all related structures Nutritional Appearance: Well nourished Orientation/consciousness: Patient oriented x3 Limitations: Torn ankle ligament, requires surgery Head: Normal to inspection Neck: Normal visual inspection Chest: Normal palpation of entire chest wall Respiratory: Normal respiratory effort Neurology: Patient oriented x3 Coding Level of Care Code Est Pt Level 4 (57821) Complex visit Add On G2211 Diagnoses Benign essential HTN I10 Assessment & Plan Assessment & Plan (1) Benign essential HTN: Code(s): I10 - Essential (primary) hypertension Category: Medical Plan Plan - Hypertension: Continue current medication regimen of amlodipine 5 mg, hydrochlorothiazide 25 mg, and lisinopril 20 mg daily, as blood pressure is considered stable. - Hyperlipidemia: Obtain fasting blood work to check cholesterol levels. - Health Maintenance: Administer a flu shot today. - Health Maintenance: Advised to wear a hat for sun protection of the scalp and to follow up with a braille duplicating machine operator in March. - Follow-up: Schedule a return visit in three months. - Right Ankle Ligament Tear: The patient will follow up with the surgeon on the . Discussion Notes I have reviewed the patient's concerns regarding elevated blood pressure readings at home. I advised that the current blood pressure is acceptable, and we will continue the same doses of amlodipine, hydrochlorothiazide, and lisinopril. I explained that increasing the medication dosage could lead to side effects, such as swelling in the feet. I have ordered a fasting blood test to monitor cholesterol levels. We discussed the patient's right ankle ligament tear, and the patient will continue to follow up with a surgeon. For preventative care, I recommended and the patient agreed to a flu shot today. I also advised the patient to wear a hat for sun protection and to keep the scheduled dermatology appointment for a scalp issue. A follow-up is scheduled in three months. Patient Instructions - Continue taking your blood pressure medications (amlodipine, hydrochlorothiazide, lisinopril) and cholesterol medication (simvastatin) at the same dose. - Go for a fasting blood test to check your cholesterol. Do not eat or drink anything except water after midnight the night before your test. - You will get a flu shot today in the office. - Make sure to wear a hat to protect your scalp when you are outdoors. - Keep your appointment with the skin doctor (braille duplicating machine operator) in March. - Continue with your plan to see the surgeon for your ankle injury. - Please schedule an appointment to see me again in three months. Orders: Orders Lipid Panel Today I10 - Essential (primary) hypertension Thyroid Stimulating Hormone Today I10 - Essential (primary) hypertension Basic Metabolic Panel Today I10 - Essential (primary) hypertension Complete Blood Count no Diff Today I10 - Essential (primary) hypertension Liver Panel Today I10 - Essential (primary) hypertension UA and rflx microscopic Today I10 - Essential (primary) hypertension
--- OUTSIDE RECORDS SUMMARY | 2025-02-12 17:11 | XMS_ITS | Clinical Summary ---
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 Name Role Phone Unavailable Primary Care Provider Unavailabl e Social History Tobacco Use Types Packs/Day Years Used Date Smoking Tobacco: Never Assessed Sex and Gender Information Value Date Recorded Sex Assigned at Not on file Legal Sex Male 6:32 PM EST Gender Identity Not on file Sexual Orientation Not on file Plan of Treatment Health Maintenance Due Date Last Done Comments Advance Care Planning 1960 Hepatitis C Virus Screening 1960 DTaP/Tdap/Td Vaccines (1 - Tdap) 1977 Pneumococcal Vaccines 50+ (1 of 1 - PCV) 2008 Zoster (Shingles) Vaccine (1 of 2) 2008 COVID-19 Vaccine ( - 2023-2 5 season) 2024 RSV Vaccine 50 years and old er and Patients (1 - 1-dose 75+ series) 2033 Hepatitis B Vaccines Aged Out No long er eligible based on patient's age to complete this topic
== END 2025-02-12 15:20 | disposition home or self-care (01) ==
LOC: HO.HMCH 14:20
PROVIDERS: PCP Internal Medicine; Visit Provider Internal Medicine
DX: Z23 Encounter for immunization (principal); I10 Essential (primary) hypertension

== ENCOUNTER → 2025-02-12 14:19 | Outpatient (BNVA) | payer BC, SELFPAY | PROVIDERS: PCP Internal Medicine; Visit Provider Internal Medicine | DX: Z23 Encounter for immunization (principal); I10 Essential (primary) hypertension | CPT/HCPCS: 90471; 90656 ==

== ENCOUNTER 2025-03-04 07:48 | Outpatient (REF) | payer BC, SELFPAY ==
--- OUTSIDE RECORDS SUMMARY | 2025-03-04 07:51 | XMS_ITS | Clinical Summary ---
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
[2025-03-04 08:35] LABS: Hematocrit 47.4 % (42.0-52.0); Hemoglobin 16.2 g/dl (14.0-18.0); Mean Corpuscular HGB Conc 34.2 g/dl (31.0-36.0); Mean Corpuscular Hemoglobin 29.4 pg (27.0-33.0); Mean Corpuscular Volume 86.0 fL (80.0-98.0); NRBC Abs Auto 0.000 X10*3/uL (0.0-0.012); NRBC Pct Auto 0.0 /100WBC (0.0-0.2); Platelet Count 211 X10*3/uL (160-400); Red Blood Count 5.51 X10*6/uL (4.60-5.80); White Blood Count 5.5 X10*3/uL (4.8-10.8)
[2025-03-04 09:08] LABS: Alanine Aminotransferase 27 U/L (0-40); Albumin Level 4.4 g/dL (3.5-5.0); Alkaline Phosphatase 48 U/L (39-117); Anion Gap 12 (12-20); Aspartate Amino Transferase 23 U/L (5-37); Blood Urea Nitrogen 15 mg/dL (9-16); Calcium 9.0 mg/dL (8.4-10.2); Carbon Dioxide 27 mmol/L (22-29); Chloride 106 mmol/L (96-108); Cholesterol 149 mg/dL (<200); Estimated Glomerular Filt Rate > 60; HDL Cholesterol 42 mg/dL (>40); Potassium 3.5 mmol/L (3.3-5.1); Sodium 141 mmol/L (135-145); Total Protein 6.7 g/dL (6.5-8.0); Triglycerides 80 mg/dL (<150)
[2025-03-04 09:15] LABS: Thyroid Stimulating Hormone 1.23 uIU/mL (0.32-4.0)
== END 2025-03-04 07:49 | disposition home or self-care (01) ==
LOC: HO.LAB 07:48
PROVIDERS: PCP Internal Medicine; Visit Provider Internal Medicine
DX: I10 Essential (primary) hypertension (principal)
CPT/HCPCS: 36415; 80048; 80061; 80076; 84443; 85027